=== PATIENT | male | born 1990 | race Caucasian/White ===

== ENCOUNTER 2017-02-16 09:10 | Day surgery (SDC) | payer BC ==
[2017-02-11 19:52] LABS: BASOPHILS 0.1 %; BASOPHILS ABSOLUTE 0.01 10/3/uL (0.0-0.16); EOSINOPHILS 1.2 %; EOSINOPHILS ABSOLUTE 0.08 10/3/uL (0.0-0.53); HEMATOCRIT 40.7 % (40.0-51.0); HEMOGLOBIN 13.8 g/dL (13.6-17.8); IMMATURE GRANULOCYTES 0.1 %; IMMATURE GRANULOCYTES ABSOLUTE 0.01 10/3/uL (0.0-0.11); LYMPHOCYTES 40.7 %; LYMPHOCYTES ABSOLUTE 2.72 10/3/uL (0.67-4.30); MEAN CORPUS HGB CONC 33.9 g/dL (32.0-36.0); MEAN CORPUSCULAR HEMOGLOB 29.5 pg (26.0-34.0); MEAN PLATELET VOLUME 10.1 fL (9.2-13.0); MONOCYTES 9.1 %; MONOCYTES ABSOLUTE 0.61 10/3/uL (0.21-1.20); NEUTROPHILS 48.8 %; NEUTROPHILS ABSOLUTE 3.25 10/3/uL (2.02-8.40); PLATELET COUNT 291 10/3/uL (150-400); RBC DISTRIBUTION WIDTH 12.3 % (12.0-16.0); RED CELL COUNT 4.68 10/6/uL (4.7-6.1); WHITE BLOOD CELLS 6.7 10/3/uL (4.5-10.5)
[2017-02-11 19:54] LABS: MANUAL DIFF NO %
[2017-02-11 19:59] LABS: INTERNATIONAL NORMAL RATI 0.9 UNITS (-); PARTIAL THROMBO TIME 53.6 SEC (22.5-37.2); PROTIME (NOT ORD) 12.2 SEC (12.0-14.5)
[2017-02-11 20:07] LABS: A/G RATIO 1.4 (0.7-1.9); ALBUMIN 4.5 G/DL (3.5-5.0); ALKALINE PHOSPHATASE 74 U/L (45-117); BUN (BLOOD UREA NITROGEN) 8 MG/DL (6-23); CALCIUM, SERUM 9.3 MG/DL (8.5-10.4); CHLORIDE, SERUM 101 MMOL/L (96-112); CO2 (CARBON DIOXIDE) 31 MMOL/L (24-34); CREATININE 1.04 MG/DL (0.70-1.30); GFR AFRICAN AMERICAN 114 ML/MIN (>=60); GFR NON AFRICAN AMERICAN 99 ML/MIN (>=60); GLOBULIN 3.3 G/DL (2.5-4.1); GLUCOSE, SERUM 95 MG/DL (60-99); POTASSIUM, SERUM 4.1 MMOL/L (3.5-5.3); SGPT(ALT) 22 U/L (5-65); SODIUM, SERUM 141 MMOL/L (135-148); TOTAL BILIRUBIN 0.5 MG/DL (0-1.2); TOTAL PROTEIN 7.8 G/DL (6.0-8.5)
[2017-02-11 20:08] LABS: SGOT(AST) 19 U/L (5-40)
--- NOTE | ~2017-02-16 | HP ---
History And Physical [place] [id number] [facility] [place]. [address] NAME: RUDI GUERRA : 89 STATUS : [facility]#: [id number] AGE: 26 ADM/REG DATE : 02/16/17 MR#: [id number] REPORT SERV DATE: 02/16/17 DICTATED BY: GALDINO GIRON III DATE: 02/16/17 REPORT STATUS : Draft TRANSCRIBED BY: MUNDO DATE: 02/16/17 DATE OF ADMISSION: 02/16/2017 The patient is a 26-year-old white male with history of several episodes of draining pus requiring drainage in the emergency department with incision and drainage and antibiotics in the umbilical area. This has happened several times, but is now completely cleared up. 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 Past history in the patient he has had a history of hay fever, acid reflux, C. diff in 2014 related to pilonidal cyst treatment, pilonidal cyst drained x3 and treated with a wound VAC to complete resolution. History of some increased anxiety. He has no PCP. His only surgeries were those for his pilonidal cyst on 08/2014, 09/2014, and 12/2014. He was managed by this physician in the wound healing center with wound VAC therapy to complete resolution of his pilonidal process. He only takes some probiotics as his medication. SOCIAL HISTORY: The patient quit smoking in 2011. Drinks some alcohol up to two drinks per encounter, but does not drink every week even. FAMILY HISTORY: Noncontributory. REVIEW OF SYSTEMS: Consistent with stable weight. Otherwise, healthy gentleman. PHYSICAL EXAMINATION: HEENT: Unremarkable. He had a full higgins. NECK: Supple. CHEST: Clear. HEART: Regular rate and rhythm. ABDOMEN: Soft, nontender, obese with multiple tattoos on the right side. EXTREMITIES: Grossly anatomic. His umbilical area showed a very deep umbilical tissue area with no tenderness or inflammatory change or induration. The area was not probed, patent in the office. NEUROLOGIC: He is alert and oriented with some anxiety. 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 Risks of surgery discussed including herniation and infection and recurrence. RB/MODL History And Physical [place] [address] [address] NAME: RUDI GUERRA : 89 STATUS : [facility] PAT#: [id number] AGE: 26 ADM/REG DATE : 02/16/17 MR#: [id number] REPORT SERV DATE: 02/16/17 DICTATED BY: GALDINO GIRON III DATE: 02/16/17 REPORT STATUS : Draft TRANSCRIBED BY: MUNDO DATE: 02/16/17 Galdino Giron III, M.D. / [id number] CC: Galdino Giron III, M.D.
--- NOTE | ~2017-02-16 | OP ---
Record Of Operation [facility] [address] [place]. [address] NAME: RUDI GUERRA : 89 STATUS : [facility]#: [id number] AGE: 26 ADM/REG DATE : 02/16/17 MR#: [id number] REPORT SERV DATE: 02/16/17 DICTATED BY: GALDINO GÓMEZ III DATE: 02/16/17 REPORT STATUS : Draft TRANSCRIBED BY: MODHarry DATE: 02/16/17 DATE OF PROCEDURE: 02/16/2017 PREOPERATIVE DIAGNOSIS: History of recurrent abscess and drainage from the umbilicus consistent with urachal cyst. POSTOPERATIVE DIAGNOSIS: History of recurrent abscess and drainage from the umbilicus consistent with urachal cyst with the finding of a small umbilical hernia defect and a fibromucosal tract that was excised. Procedure was performed through an infraumbilical incision and the urachal tract was removed down to the peritoneal level. This was done open, clean contaminated case. No mesh was used. FLIGHT ENGINEER: Erin Gómez RN, [facility]. ANESTHESIA: The procedure was done under general anesthesia supplemented with 30 mL of 0.5% Marcaine with epinephrine locally infiltrated around the umbilical area. ESTIMATED BLOOD LOSS: 5 mL. FLUIDS USED: 1100 mL of crystalloid. DRAINS: No drains were used. SPECIMENS: Specimen of the tract behind the umbilical apex was excised subfascially, subperitoneally, and submitted separately with cultures done at this level for anaerobic, aerobic, fungus, and AFB analysis. COMPLICATIONS: There were no complications. PROCEDURE IN DETAIL: A timeout was called. Everyone in the room concurred with the planned procedure, diagnosis, and expectations. There were no known allergies. The patient was given preoperative antibiotics and an abnormality in the lab work was discussed with his PTT being elevated at 53.6 and repeat was ordered in the PACU. The patient was prepped and draped in a routine fashion. A marking pen was used to delineate a circumumbilical infraumbilical incision and the area was infiltrated with 20 mL 0.5% Marcaine with epinephrine. A perpendicular dissection plane was carried out beneath the umbilicus and the cylindrical track identified and surrounded and skeletonized. This was communicating with the apex of the umbilical skin, and the tissue was dissected off the umbilical apex and dissected down to the fascia, where a small defect was encountered and dissection below the fascia and peritoneum completed. There was no evidence of extension of the tract on the anterior peritoneal surface and the area was removed in its entirety. Hemostasis was achieved with the cautery. A small fascial defect was noted, and this was closed with [id number] sutures of 0 Vicryl, all placed under direct visualization and tied down after placement. The cultures were obtained as previously described from the area of the tract from the apex all the way down to the peritoneum as a swab culture. Record Of Operation [facility] [address] [facility] [place]. [address] NAME: RUDI GUERRA : 89 STATUS : [facility] PAT#: [id number] AGE: 26 ADM/REG DATE : 02/16/17 MR#: [id number] REPORT SERV DATE: 02/16/17 DICTATED BY: GALDINO GÓMEZ III DATE: 02/16/17 REPORT STATUS : Draft TRANSCRIBED BY: MUNDO DATE: 02/16/17 The sutures were then tied down with a transverse closure of an approximately 2 cm defect that was closed with a relative tension-free approximation. The area was then irrigated with copious amounts of normal saline and the area inspected and good hemostasis noted. An umbilical pexy was then carried out using 3-0 Vicryl sutures to secure the apex of the dissected umbilical apex to the fascia just above the incision closure. This was done with two 3-0 Vicryl sutures. After this was done, irrigation again carried out and the subcutaneous tissue closed in two layers with interrupted 3-0 Vicryl sutures. The skin was closed with a running subcuticular suture of 4-0 Monocryl and the procedure concluded. The wound was dressed with a cotton ball, Telfa, and Tegaderm and the procedure done with no complications. Sponge, lap, and needle counts were all normal and the procedure concluded. The patient was given a prescription for Lortab 7.5/325 to take every four hours p.r.n. for pain and Zofran 4 mg to take every six hours p.r.n. for nausea as needed. A prescription for Bactrim DS was also given to the patient to take for a few days as perioperative coverage although no obvious infection was seen. The patient is to do no heavy lifting, keep an ice bag to the umbilical area for 24 hours, and follow up in my office in two weeks. [place]/MUNDO Galdino Gómez III, M.D. / [id number] CC: Galdino Gómez III, M.D.
[~2017-02-16 09:10] MED LIST: PROBIOTIC PO
== END 2017-02-16 16:34 | disposition home or self-care (01) ==
LOC: SDC 09:10
PROVIDERS: Surgery
PROC: 0WBF0ZZ Excision of Abdominal Wall, Open Approach (ICD-10-PCS; 2017-02-16)
PROC: 0WJP0ZZ Inspection of Gastrointestinal Tract, Open Approach (ICD-10-PCS; principal; 2017-02-16 10:45)
DX: Q64.4 Malformation of urachus (principal); Z87.891 Personal history of nicotine dependence; K21.9 Gastro-esophageal reflux disease without esophagitis; Z98.890 Other specified postprocedural states; F41.9 Anxiety disorder, unspecified
CPT/HCPCS: 36415; 80053; 85025; 85610; 85730; 87015; 87070; 87075; 87102; 87116; 87205; 87641; 88305; A9270-GY; J0690; J1170; J1885; J2250; J2405; J2710; J3010